=== PATIENT | male | born 1960 | race Caucasian/White ===

== ENCOUNTER → 2017-05-05 | Outpatient (CLI) | payer MEDICARE, OTHER ==
--- NOTE | 2017-05-05 19:10 | EKG REPORT ---
SEVERITY:- ABNORMAL ECG - SINUS OR ECTOPIC ATRIAL RHYTHM PROBABLE LEFT ATRIAL ABNORMALITY ABNRM R PROG, CONSIDER ASMI OR LEAD PLACEMENT : Confirmed by: Willard Guy MD 05-May-2017 19:09:38
== END ==
LOC: OD 11:40
PROVIDERS: ATTEND Physician Assistant
DX: Z79.899 Other long term (current) drug therapy (principal); Z79.891 Long term (current) use of opiate analgesic
CPT/HCPCS: 93005; 36415; 93010; G0480; 80358

== ENCOUNTER → 2018-08-18 | Outpatient (CLI) | payer MEDICARE, MEDICAID ==
--- NOTE | 2018-08-18 22:39 | EKG REPORT ---
SEVERITY:- ABNORMAL ECG - SINUS RHYTHM PROBABLE ANTEROSEPTAL INFARCT, OLD : Confirmed by: Julisa Sinha 18-Aug-2018 22:38:53
== END ==
LOC: OD 12:17
PROVIDERS: ATTEND Physician Assistant Medical
DX: Z79.891 Long term (current) use of opiate analgesic (principal)
CPT/HCPCS: 93005; 36415; 93010; G0480; 80358

== ENCOUNTER 2018-11-24 14:33 | Emergency (ER) | payer MEDICARE, MEDICAID ==
--- NOTE | 2018-11-24 15:14 | ER Document Report ---
ED Medical Screen (RME) - General Chief Complaint: Abnormal Lab Results Stated Complaint: ABNORMAL LABS Time Seen by Provider: 11/24/18 15:04 Primary Care Provider: FESTUS COLLINS PA-C [Primary Care Provider] - Follow up as needed Information source: Patient Notes: Patient sent to the ED by PCP, Dr. Shay, for hemoglobin of 6. Patient went to his primary care physician yesterday for lower extremity swelling and had routine blood work done. He was contacted today and told to go to the emergency department for an evaluation because his hemoglobin was 6. Patient states that he did have a hernia repair surgery done at the beginning of October in [place] by Dr. Irwin. Patient states that his incision is healing well. Patient does have a colostomy bag in place. He denies seeing any blood in the bag. Patient denies any chest pain, shortness of breath, abdominal pain, nausea, vomiting. I have greeted and performed a rapid initial assessment of this patient. A comprehensive ED assessment and evaluation of the patient, analysis of test results and completion of the medical decision making process will be conducted by additional ED providers. PHYSICAL EXAMINATION: GENERAL: Ill appearing. HEAD: Atraumatic, normocephalic. EYES: Pupils equal round extraocular movements intact, conjunctiva are normal. ENT: Nares patent NECK: Normal range of motion LUNGS: No respiratory distress Musculoskeletal: Normal range of motion NEUROLOGICAL: Normal speech, normal gait. PSYCH: Normal mood, normal affect. TRAVEL OUTSIDE OF THE [place] IN LAST 30 DAYS: No - Related Data Allergies/Adverse Reactions: No Known Allergies Allergy (Unverified 03/19/16 15:11) Past Medical History Renal/ Medical History: Denies: Hx Peritoneal Dialysis GI Medical History: Reports: Hx Gastroesophageal Reflux Disease Musculoskeltal Medical History: Reports Hx Arthritis Psychiatric Medical History: Reports: Hx Depression Past Surgical History: Reports: Hx Abdominal Surgery Physical Exam - Vital signs Vitals: Temp Pulse Resp BP Pulse Ox 98.1 F 100 20 111/58 L 98 11/24/18 14:42 11/24/18 14:42 11/24/18 14:42 11/24/18 14:42 11/24/18 14:42 Course - Vital Signs Vital signs: Temp Pulse Resp BP Pulse Ox 98.1 F 100 20 111/58 L 98 11/24/18 14:42 11/24/18 14:42 11/24/18 14:42 11/24/18 14:42 11/24/18 14:42 Doctor's Discharge - Discharge Referrals: FESUTS COLLINS PA-C [Primary Care Provider] - Follow up as needed
[2018-11-24 15:53] LABS: ALANINE AMINOTRANSFERASE 14 U/L (21-72); ALBUMIN 3.8 g/dL (3.5-5.0); ALKALINE PHOSPHATASE 81 U/L (38-126); ANION GAP 11 (5-19); ASPARTATE AMINO TRANSFERASE 8 U/L (17-59); BILIRUBIN,DIRECT 0.2 mg/dL (0.0-0.4); BILIRUBIN,TOTAL 0.9 mg/dL (0.2-1.3); BLOOD UREA NITROGEN 14 mg/dL (7-20); CALCIUM 8.4 mg/dL (8.4-10.2); CARBON DIOXIDE 24 mmol/L (22-30); CHLORIDE 99 mmol/L (98-107); GLUCOSE 101 mg/dL (75-110); POTASSIUM 4.9 mmol/L (3.6-5.0); SODIUM 134.3 mmol/L (137-145); TOTAL PROTEIN 5.8 g/dL (6.3-8.2)
[2018-11-24 16:00] LABS: HEMATOCRIT 19.5 % (37.9-51.0); MEAN CORPUSCULAR HEMOGLOBIN 23.8 pg (27.0-33.4); MEAN CORPUSCULAR HGB CONC 31.6 g/dL (32.0-36.0); MEAN CORPUSCULAR VOLUME 75 fl (80-97); PLATELET COUNT 141 10^3/uL (150-450); RED BLOOD COUNT 2.59 10^6/uL (4.35-5.55); RED CELL DISTRIBUTION WIDTH 22.8 % (11.5-14.0); WHITE BLOOD COUNT 9.5 10^3/uL (4.0-10.5)
[2018-11-24 16:16] LABS: HEMOGLOBIN 6.2 g/dL (13.5-17.0)
[2018-11-24 16:20] LABS: ABSOLUTE LYMPHOCYTES# (MANUAL) 1.3 10^3/uL (0.5-4.7); ABSOLUTE MONOCYTES # (MANUAL) 0.7 10^3/uL (0.1-1.4); ABSOLUTE NEUTROPHILS# (MANUAL) 7.3 10^3/uL (1.7-8.2); BAND NEUTROPHILS % (MANUAL) 1 % (3-5); BASOPHILS % (MANUAL) 0 % (0-2); EOSINOPHILS % (MANUAL) 2 % (0-6); LYMPHOCYTES % (MANUAL) 14 % (13-45); MONOCYTES % (MANUAL) 7 % (3-13); NUCLEATED RED BLOOD CELLS 4 /100 WBC (0); SEGMENTED NEUTROPHILS % (MAN) 76 % (42-78); TOTAL CELLS COUNTED 100
[2018-11-24 16:21] LABS: ANISOCYTOSIS 3+; OVALOCYTES 2+; PLATELET COMMENT DECREASED; POIKILOCYTOSIS 2+
[2018-11-24] MEDS ORDERED: NORMAL SALINE 250 ML IV PRN (16:48)
--- NOTE | 2018-11-24 16:56 | ER Document Report ---
ED General - General Chief Complaint: Abnormal Lab Results Stated Complaint: ABNORMAL LABS Time Seen by Provider: 11/24/18 15:04 Primary Care Provider: FESTUS COLLINS PA-C [Primary Care Provider] - Follow up as needed Notes: Patient is a 58-year-old male who presents to the emergency department after having his blood drawn at his doctor's office. He states he was having the blood drawn to evaluate for his lower extremity edema. His doctor's office called him and told him to come in and stated that his hemoglobin was 6.0. The patient reports that he had a hernia repair done approximately [address] Irwin at [facility]. He states that at that time he stayed in the hospital for approximately 7 days and had to have blood transfusions due to low hemoglobin. Currently he reports that he has been feeling increased dizziness lately and has had persistent nausea without v omiting. He does have some abdominal pain but states that this is the same pain around his surgical sites that is been present since the time of the surgery. He denies having any known bleeding. He has a colostomy bag which does not have any evident blood in it. Patient reports his only past medical history is chronic low back pain. TRAVEL OUTSIDE OF THE [place] IN LAST 30 DAYS: No - Related Data Allergies/Adverse Reactions: No Known Allergies Allergy (Unverified 03/19/16 15:11) Past Medical History - General Information source: Patient - Social History Smoking Status: Former Smoker Family History: Reviewed & Not Pertinent Patient has suicidal ideation: No Patient has homicidal ideation: No Renal/ Medical History: Denies: Hx Peritoneal Dialysis GI Medical History: Reports: Hx Gastroesophageal Reflux Disease Musculoskeletal Medical History: Reports Hx Arthritis Psychiatric Medical History: Reports: Hx Depression Past Surgical History: Reports: Hx Abdominal Surgery Physical Exam - Vital signs Vitals: Temp Pulse Resp BP Pulse Ox 98.1 F 100 20 111/58 L 98 11/24/18 14:42 11/24/18 14:42 11/24/18 14:42 11/24/18 14:42 11/24/18 14:42 - Notes Notes: PHYSICAL EXAMINATION: GENERAL: Pale. HEAD: Atraumatic, normocephalic. EYES: Pupils equal round and reactive to light, extraocular movements intact, sclera anicteric, conjunctiva are normal. ENT: Nares patent, oropharynx clear without exudates. Moist mucous membranes. NECK: Normal range of motion, supple without lymphadenopathy LUNGS: Breath sounds clear to auscultation bilaterally and equal. No wheezes rales or rhonchi. HEART: Regular rate and rhythm without murmurs ABDOMEN: Colostomy bag noted to right lower quadrant, surgical sites noted to periumbilical area with dressings in place. Greenish yellow purulent drainage noted on the bandages. Musculoskeletal: Normal range of motion, 3+ pitting edema to bilateral lower extremities near the ankles. NEUROLOGICAL: Cranial nerves grossly intact. Normal speech, normal gait. Normal sensory, motor exams PSYCH: Normal mood, normal affect. SKIN: Warm, Dry, normal turgor, no rashes or lesions noted. Course - Re-evaluation Re-evalutation: Hemoglobin 6.2, hematocrit 19.5. Comprehensive metabolic panel with a sodium of 134.3, otherwise unremarkable. We will start normal saline infusion at 150 mL's per hour while patient is here in the emergency department. Patient is alert and denies any complaints other than some dizziness over the last several days. Reports generalized abdominal pain but states this has been present since the day of surgery. Denies any episodes of syncope. Denies any known GI bleeding. Denies ever having had a colonoscopy or endoscopy. 11/24/18 16:54 Call placed to [facility] to speak with on-call surgeon for Dr. Irwin's surgical group. 11/24/18 17:[address] Kiley Camarena, on-call surgeon from [facility] she recommends obtaining an IV contrasted CT of the abdomen and pelvis to look for any acute bleed or hematoma. She agrees with plan to transfuse patient with 2 units of packed red cells. If patient asymptomatic after blood transfusion may discharge home with plans to follow-up with surgery outpatient. 11/24/18 18:01 Patient medicated for nausea after receiving the IV contrast. Patient updated on plan of care. Patient has been asking for something to drink, he will be allowed to have something to drink if the scan is negative. Patient verbalizes understanding of same. Patient continues to deny any pain. 11/24/18 18:46 Call placed to [facility] to go over results of mer caro's CAT scan as patient has new hepatosplenomegaly in comparison with the most previous scan on our system of 10/06/16. Awaiting callback. Patient currently resting without any discomfort. First unit of packed red blood cells are infusing. 11/24/18 19:01 Spoke with on-call surgeon Dr. Gifford and discussed CT results. He recommends continuing to transfuse the 2 units of packed red cells. Then he recommends as long as patient is asymptomatic discharging patient on iron supplementation and instructing patient on increasing his nutritional intake. Follow-up in 1 week with their group for a hemoglobin recheck as well as follow-up. - Vital Signs Vital signs: Temp Pulse Resp BP Pulse Ox 98.3 F 103 H 17 115/65 100 11/24/18 18:20 11/24/18 18:20 11/24/18 18:20 11/24/18 18:20 11/24/18 18:20 - Laboratory Result Diagrams: 11/24/18 15:30 11/24/18 15:30 Laboratory results interpreted by me: 11/24/18 11/24/18 11/24/18 15:30 15:30 15:30 RBC 2.59 L Hgb 6.2 L Hct 19.5 L MCV 75 L MCH 23.8 L MCHC 31.6 L RDW 22.8 H Plt Count 141 L Band Neutrophils % 1 L Sodium 134.3 L AST 8 L ALT 14 L Total Protein 5.8 L Crossmatch See Detail Discharge - Discharge Clinical Impression: Postoperative anemia Condition: Stable Disposition: HOME, SELF-CARE Additional Instructions: He received a blood transfusion of 2 units today in the emergency department. I called and spoke with the on-call surgeon for Dr. Irwin's group at [facility]. They would like you to start taking an iron supplement which I have prescribed. It is also important to increase your nutritional intake by eating healthy proteins as well as vegetables. They would like to see you next week for a follow-up and also to have your hemoglobin redrawn. As we discussed please return to the emergency department if you develop any new or worrisome symptoms such as dizziness, feeling faint, rapid heartbeat or any other symptom that is concerning to you. We will be happy to reevaluate you at any time here in the emergency department. Prescriptions: Ferrous Sulfate [Feosol] 325 mg PO BID #60 tablet Referrals: COLLINS,FESTUS E, PA-C [Primary Care Provider] - Follow up as needed
--- NOTE | 2018-11-24 17:17 | RADIOLOGY REPORT (SQ) ---
EXAM DESCRIPTION: CHEST SINGLE VIEW COMPLETED DATE/TIME: 11/24/2018 5:09 pm REASON FOR STUDY: eval for CHF, bilateral LE edema COMPARISON: 03/19/2016 EXAM PARAMETERS: NUMBER OF VIEWS: One view. TECHNIQUE: Single frontal radiographic view of the chest acquired. RADIATION DOSE: NA LIMITATIONS: None. FINDINGS: LUNGS AND PLEURA: No opacities, masses or pneumothorax. No pleural effusion. MEDIASTINUM AND HILAR STRUCTURES: No masses. Contour normal. HEART AND VASCULAR STRUCTURES: Heart normal in size. Normal vasculature. BONES: No acute findings. HARDWARE: None in the chest. OTHER: No other significant finding. IMPRESSION: NO ACUTE RADIOGRAPHIC FINDING IN THE CHEST. TECHNICAL DOCUMENTATION: JOB ID: [id number]- All Rights Reserved Reading location - IP/workstation name: [email or web address]
[2018-11-24] MEDS ORDERED: ONDANSETRON HCL INJ/PF 4 MG/2 ML SDV IV ONE (18:01)
[2018-11-24] MEDS ORDERED: NORMAL SALINE 1000 ML 1,000 ML IV ONE (18:04)
--- NOTE | 2018-11-24 18:24 | RADIOLOGY REPORT (SQ) ---
EXAM DESCRIPTION: CT ABD/PELVIS WITH IV ONLY COMPLETED DATE/TIME: 11/24/2018 5:59 pm REASON FOR STUDY: eval for post-op bleeding or hematoma COMPARISON: 10/06/2018 TECHNIQUE: CT scan of the abdomen and pelvis performed using helical scanning technique with dynamic intravenous contrast injection. No oral contrast. Images reviewed with lung, soft tissue, and bone windows. Reconstructed coronal and sagittal MPR images reviewed. Delayed images for evaluation of the urinary system also acquired. All images stored on PACS. All CT scanners at this facility use dose modulation, iterative reconstruction, and/or weight based d osing when appropriate to reduce radiation dose to as low as reasonably achievable (ALARA). [facility]: Dose Right [facility]: CareDose [facility]: Dose Right [facility]: Teradose 4D [facility]: [employer] CONTRAST TYPE AND DOSE: contrast/concentration: Isovue 350.00 mg/ml; Total Contrast Delivered: 93.0 ml; Total Saline Delivered: 56.0 ml RENAL FUNCTION: BUN 14 creatinine 1.1 RADIATION DOSE: CT Rad equipment meets quality standard of care and radiation dose reduction techniq ues were employed. CTDIvol: NaN - NaN mGy. DLP: 0 mGy-cm.. LIMITATIONS: None. FINDINGS: LOWER CHEST: No significant findings. No nodules or infiltrates. LIVER: Hepatomegaly. SPLEEN: Splenomegaly. The spleen measures 21 cm in cephalocaudal dimension. PANCREAS: No masses. No significant calcifications. No adjacent inflammation or peripancreatic fluid collections. Pancreatic duct not dilated. GALLBLADDER: No identified stones by CT criteria. No inflammatory changes to suggest cholecystitis. ADRENAL GLANDS: No significant masses or asymmetry. RIGHT KIDNEY AND URETER: No solid masses. No significant calcifications. No hydronephrosis or hyd roureter. LEFT KIDNEY AND URETER: No solid masses. No significant calcifications. No hydronephrosis or hydr oureter. AORTA AND VESSELS: No aneurysm. No dissection. Renal arteries, SMA, celiac without stenosis. RETROPERITONEUM: No retroperitoneal adenopathy, hemorrhage or masses. BOWEL AND PERITONEAL CAVITY: There is an ostomy in the right lower quadrant. There are inflammatory changes in the subcutaneous fat around the ostomy. No fluid collection is seen to suggest an abscess . No obvious bowel mass. There is no free fluid in the abdomen. APPENDIX: Not identified PELVIS: No mass. No free fluid. Normal bladder. ABDOMINAL WALL: No masses. No hernias. BONES: Scoliosis. Anterolisthesis of L5 on S1. Bilateral pars defects are suggested at L5. OTHER: No other significant finding. IMPRESSION: 1. Hepatosplenomegaly. The splenic enlargement is a new finding. 2. There is now an ostomy in the right lower quadrant. There are inflammatory changes in subcutaneo us fat in this area. No fluid collection is seen. 3. Osseous findings as described. TECHNICAL DOCUMENTATION: JOB ID: [id number] Quality ID # [id number]: Final reports with documentation of one or more dose reduction techniques (e.g., Au tomated exposure control, adjustment of the mA and/or kV according to patient size, use of iterative reconstruction technique) 2010 [employer]- All Rights Reserved Reading location - IP/workstation name: [email or web address]
[2018-11-24] MEDS ORDERED: MORPHINE SULFATE 10 MG/ML INJ IV ONE (22:15)
[2018-11-24 23:54] VITALS: BP 100/69
== END 2018-11-25 00:15 | disposition home or self-care (01) ==
LOC: ER 14:33
DX: D64.9 Anemia, unspecified (principal); Z98.890 Other specified postprocedural states; R10.33 Periumbilical pain; R60.0 Localized edema; R42 Dizziness and giddiness; R11.0 Nausea; Z87.891 Personal history of nicotine dependence; Z93.3 Colostomy status
CPT/HCPCS: 99284; 96374; 86900; 86901; 36415; 36430; 86850; 85025; 80053; 86920; 83880; 71045; 74177; P9016; J2270

== ENCOUNTER 2018-12-02 04:23 | Emergency (ER) | payer MEDICARE, MEDICAID ==
[2018-12-02 06:05] LABS: HEMATOCRIT 21.9 % (37.9-51.0); MEAN CORPUSCULAR HEMOGLOBIN 25.2 pg (27.0-33.4); MEAN CORPUSCULAR HGB CONC 32.4 g/dL (32.0-36.0); MEAN CORPUSCULAR VOLUME 78 fl (80-97); PLATELET COUNT 120 10^3/uL (150-450); RED BLOOD COUNT 2.82 10^6/uL (4.35-5.55); RED CELL DISTRIBUTION WIDTH 21.6 % (11.5-14.0); WHITE BLOOD COUNT 8.4 10^3/uL (4.0-10.5)
[2018-12-02 06:22] LABS: ABSOLUTE LYMPHOCYTES# (MANUAL) 1.6 10^3/uL (0.5-4.7); ABSOLUTE MONOCYTES # (MANUAL) 0.2 10^3/uL (0.1-1.4); ABSOLUTE NEUTROPHILS# (MANUAL) 6.2 10^3/uL (1.7-8.2); BAND NEUTROPHILS % (MANUAL) 2 % (3-5); BASOPHILS % (MANUAL) 0 % (0-2); EOSINOPHILS % (MANUAL) 5 % (0-6); LYMPHOCYTES % (MANUAL) 19 % (13-45); MONOCYTES % (MANUAL) 2 % (3-13); NUCLEATED RED BLOOD CELLS 1 /100 WBC (0); SEGMENTED NEUTROPHILS % (MAN) 72 % (42-78); TOTAL CELLS COUNTED 100
[2018-12-02 06:23] LABS: ANISOCYTOSIS 3+; HYPOCHROMASIA SLIGHT; OVALOCYTES 1+; PLATELET COMMENT DECREASED; POIKILOCYTOSIS 1+; POLYCHROMASIA SLIGHT; TEAR DROP CELLS SLIGHT
[2018-12-02 06:24] LABS: HEMOGLOBIN 7.1 g/dL (13.5-17.0)
[2018-12-02 06:24] LABS: APPEARANCE,URINE CLEAR; BILIRUBIN,URINE NEGATIVE (NEGATIVE); COLOR,URINE YELLOW; GLUCOSE, URINE NEGATIVE (NEGATIVE); KETONES,URINE NEGATIVE (NEGATIVE); LEUKOCYTE ESTERASE,URINE NEGATIVE (NEGATIVE); NITRITE,URINE NEGATIVE (NEGATIVE); PROTEIN,URINE NEGATIVE (NEGATIVE); URINE SPECIFIC GRAVITY 1.013; UROBILINOGEN,URINE NEGATIVE mg/dL (<2.0)
[2018-12-02] MEDS ORDERED: NORMAL SALINE 250 ML IV PRN (07:48)
--- NOTE | 2018-12-02 07:49 | ER Document Report ---
ED General - General Chief Complaint: Abnormal Lab Results Stated Complaint: ABNORMAL LABS Time Seen by Provider: 12/02/18 07:20 Mode of Arrival: Ambulatory Information source: Patient Notes: Patient is a 58-year-old male who presents the emergency department requesting blood transfusion. Patient has a recent history of anemia. Patient was seen here approximately 1 week ago and given 2 units of packed red cells. Patient reports he had outpatient labs drawn yesterday at his oncologist office and was found to have a hemoglobin of 7.1. His oncologist directed him to come to the ED to get 2 units of blood. Patient had surgery approximately 5 weeks ago at [facility] for a hernia repair which is what started the cycle of anemia. Patient currently has no complaints. He denies any chest pain, shortness of breath, weakness or dizziness. Patient reports he feels well. TRAVEL OUTSIDE OF THE [place] IN LAST 30 DAYS: No - Related Data Allergies/Adverse Reactions: No Known Allergies Allergy (Verified 12/02/18 04:26) Past Medical History - General Information source: Patient - Social History Smoking Status: Current Some Day Smoker Frequency of alcohol use: None Drug Abuse: None Family History: Reviewed & Not Pertinent Patient has suicidal ideation: No Patient has homicidal ideation: No Renal/ Medical History: Denies: Hx Peritoneal Dialysis GI Medical History: Reports: Hx Gastroesophageal Reflux Disease Musculoskeletal Medical History: Reports Hx Arthritis Psychiatric Medical History: Reports: Hx Depression Past Surgical History: Reports: Hx Abdominal Surgery Review of Systems - Review of Systems Constitutional: No symptoms reported EENT: No symptoms reported Cardiovascular: No symptoms reported Respiratory: No symptoms reported Gastrointestinal: No symptoms reported Genitourinary: No symptoms reported Male Genitourinary: No symptoms reported Musculoskeletal: No symptoms reported Skin: No symptoms reported Hematologic/Lymphatic: No symptoms reported Neurological/Psychological: No symptoms reported Physical Exam - Vital signs Vitals: Temp Pulse Resp BP Pulse Ox 98.7 F 109 H 16 129/70 H 100 12/02/18 04:28 12/02/18 04:28 12/02/18 04:28 12/02/18 04:28 12/02/18 04:28 - Notes Notes: PHYSICAL EXAMINATION: GENERAL: Well-appearing, well-nourished and in no acute distress. HEAD: Atraumatic, normocephalic. EYES: Pupils equal round and reactive to light, extraocular movements intact, sclera anicteric, conjunctiva are normal. ENT: Nares patent, oropharynx clear without exudates. Moist mucous membranes. NECK: Normal range of motion, supple without lymphadenopathy LUNGS: Breath sounds clear to auscultation bilaterally and equal. No wheezes rales or rhonchi. HEART: Regular rate and rhythm without murmurs ABDOMEN: Soft, nontender, nondistended abdomen. No guarding, no rebound. No masses appreciated. Musculoskeletal: Normal range of motion, no pitting or edema. No cyanosis. NEUROLOGICAL: Cranial nerves grossly intact. Normal speech. Normal sensory, motor exams PSYCH: Normal mood, normal affect. SKIN: Warm, Dry, pale, normal turgor, no rashes or lesions noted. Course - Re-evaluation Re-evalutation: 12/02/18 08:05 Hemoglobin is 7.1, hematocrit 21.9. Patient will be transfused 2 units of blood. Patient understands the risks and benefits, patient did have a blood transfusion of 2 units done here in this facility 2 weeks ago. Patient currently denies any physical complaints. His physical examination is unremarkable other than being pale. He is currently being seen by [facility], Dr. Jones for his recurrent anemia. He states he has an appointment with him on Thursday. Patient also has an appointment scheduled with a nylon machine operator for 12/09/18 for a consultation for endoscopy and colonoscopy. Patient has had an uneventful ED stay. He received 2 units of packed red blood cells. His vital signs remained stable throughout the transfusions. He reports he feels well and is ready to go home. He already has follow-up scheduled with both his oncologist as well as his nylon machine operator. Patient and verbalized understanding of ED return precautions and are agreeable to same. - Vital Signs Vital signs: Temp Pulse Resp BP Pulse Ox 98 F 89 18 122/76 100 12/02/18 13:00 12/02/18 13:00 12/02/18 13:00 12/02/18 13:12/02/18 13:00 - Laboratory Result Diagrams: 12/02/18 05:51 Laboratory results interpreted by me: 12/02/18 12/02/18 05:51 06:46 RBC 2.82 L Hgb 7.1 L Hct 21.9 L MCV 78 L MCH 25.2 L RDW 21.6 H Plt Count 120 L Band Neutrophils % 2 L Monocytes % (Manual) 2 L Crossmatch See Detail Discharge - Discharge Clinical Impression: Encounter for blood transfusion Anemia Qualifiers: Anemia type: other cause Other causes of anemia: other cause, not classified Qualified Code(s): D64.89 - Other specified anemias Condition: Stable Disposition: HOME, SELF-CARE Additional Instructions: You received a transfusion of packed red blood cells today. Please continue to follow-up with your wool cleaner as discussed. Keep the appointment you have with your nylon machine operator as well for your scope. Please return to the emergency department if you experience any blood in your stool or vomit. Please also return to the emergency department if you experience weakness, you pass out or any other symptom that is concerning to you.
[2018-12-02 13:01] VITALS: BP 122/76
== END 2018-12-02 13:02 | disposition home or self-care (01) ==
LOC: ER 04:23
DX: D64.89 Other specified anemias (principal); F17.200 Nicotine dependence, unspecified, uncomplicated
CPT/HCPCS: 99283; 96360; 96361; 86900; 86901; 36415; 36430; 86850; 85025; 81001; 86920; P9016; J7050

== ENCOUNTER → 2018-12-13 | Outpatient (CLI) | payer MEDICARE, MEDICAID ==
[2018-12-13 10:37] LABS: PHOSPHORUS 4.7 mg/dL (2.5-4.5)
== END ==
LOC: LAB 09:38
PROVIDERS: ATTEND Internal Medicine Gastroenterology
DX: Z79.899 Other long term (current) drug therapy (principal)
CPT/HCPCS: 36415; 82330; 83735; 84100

== ENCOUNTER 2019-02-26 16:15 | Emergency (ER) | payer MEDICARE, MEDICAID ==
[2019-02-26 16:28] VITALS: BP 126/69
[2019-02-26] MEDS ORDERED: DIPH/PERTUSS(ACELL)/TETANUS VAC/PF 0.5 ML SYR (>=10YO) IM ONE (17:54)
[2019-02-26] MEDS ORDERED: LIDOCAINE 1% INJ-PF (10 MG/ML) 30 ML SDV INJ ONE (17:54)
[2019-02-26] MEDS ORDERED: HYDROCODONE/ACETAMINOPHEN 5-325 MG TABLET PO ONE (17:56)
--- NOTE | 2019-02-26 18:05 | ER Document Report ---
ED General - General Chief Complaint: Laceration Stated Complaint: LEG LACERATION Time Seen by Provider: 02/26/19 17:54 Mode of Arrival: Ambulatory Information source: Patient TRAVEL OUTSIDE OF THE [place] IN LAST 30 DAYS: No - HPI Patient complains to provider of: Right ankle laceration Onset: Just prior to arrival Onset/Duration: Sudden Quality of pain: Sharp Severity: Moderate Pain Level: 3 Associated symptoms: None Exacerbated by: Denies Relieved by: Denies Similar symptoms previously: No Recently seen / treated by doctor: No Notes: 58-year-old male coming in today with right ankle laceration. Rodolfo stand from a recreational struck him in the ankle. No chance of foreign body. No chance of bony injury. Last tetanus unknown - Related Data Allergies/Adverse Reactions: No Known Allergies Allergy (Verified 02/26/19 16:16) Past Medical History - Social History Smoking Status: Smoker,Current Status Unk Family History: Reviewed & Not Pertinent Renal/ Medical History: Denies: Hx Peritoneal Dialysis GI Medical History: Reports: Hx Gastroesophageal Reflux Disease Musculoskeletal Medical History: Reports Hx Arthritis Psychiatric Medical History: Reports: Hx Depression Past Surgical History: Reports: Hx Abdominal Surgery Physical Exam - Vital signs Vitals: Temp Pulse Resp BP Pulse Ox 98.2 F 90 18 126/69 H 95 02/26/19 16:26 02/26/19 16:26 02/26/19 16:26 02/26/19 16:26 02/26/19 16:26 Course - Vital Signs Vital signs: Temp Pulse Resp BP Pulse Ox 98.2 F 90 18 126/69 H 95 02/26/19 16:26 02/26/19 16:26 02/26/19 16:26 02/26/19 16:26 02/26/19 16:26 Procedures - Laceration/Wound Repair LEFT ANKLE Time completed: 18:50 Wound length (cm): 4 Wound's Depth, Shape: Linear, Flap Laceration pre-procedure: Sterile PPE donned, Sterile drapes applied, Shur-Clens applied Anesthetic type: 1% Lidocaine Volume Anesthetic (mLs): 14 Wound explored: Clean, No foreign body removed - NO FB SEEN Wound Repaired With: Sutures Suture Size/Type: 3:0, Prolene Number of Sutures: 7 Layer Closure?: No Post-procedure wound care: Sterile dressing applied Post-procedure NV exam normal: Yes Complications: No Discharge - Discharge Clinical Impression: Laceration of left ankle Qualifiers: Encounter type: initial encounter Qualified Code(s): S91.012A - Laceration without foreign body, left ankle, initial encounter Condition: Good Disposition: HOME, SELF-CARE Instructions: Antibiotic Ointment Protection ([facility]), Laceration Care ([facility]), Soap Cleansing ([facility]), Tetanus Immunization Given ([facility]) Additional Instructions: Sutures can come out as early as 10 days but may stay in his late is 14 days. Return to ED if signs of infection.
== END 2019-02-26 19:16 | disposition home or self-care (01) ==
LOC: ER 16:15
DX: S91.012A Laceration without foreign body, left ankle, initial encounter (principal); W22.8XXA Striking against or struck by other objects, initial encounter
CPT/HCPCS: 99282; 90471; 90715; 12002; J3490; A9270

== ENCOUNTER → 2019-10-07 | Outpatient (CLI) | payer MEDICARE, MEDICAID ==
--- NOTE | 2019-10-07 21:40 | EKG REPORT ---
SEVERITY:- NORMAL ECG - SINUS RHYTHM : Confirmed by: Willard Guy MD 07-Oct-2019 21:40:04
== END ==
LOC: OD 11:17
PROVIDERS: ATTEND Physician Assistant
DX: Z51.81 Encounter for therapeutic drug level monitoring (principal); Z79.891 Long term (current) use of opiate analgesic; Z79.899 Other long term (current) drug therapy
CPT/HCPCS: 93005; 93010

== ENCOUNTER → 2019-10-11 | Outpatient (CLI) | payer MEDICARE, MEDICAID | LOC: OD 11:03 | PROVIDERS: ATTEND Physician Assistant | DX: Z51.81 Encounter for therapeutic drug level monitoring (principal); Z79.891 Long term (current) use of opiate analgesic; Z79.899 Other long term (current) drug therapy | CPT/HCPCS: 36415; G0480; 80358 ==

== ENCOUNTER → 2019-11-23 | Outpatient (CLI) | payer MEDICARE, MEDICAID | LOC: OD 11:06 | PROVIDERS: ATTEND Pain Medicine Interventional Pain Medicine | DX: Z51.81 Encounter for therapeutic drug level monitoring (principal); Z79.891 Long term (current) use of opiate analgesic | CPT/HCPCS: 36415; G0480; 80358 ==

== ENCOUNTER → 2020-05-22 | Outpatient (CLI) | payer MEDICAID, MEDICARE ==
--- NOTE | 2020-05-22 14:57 | RADIOLOGY REPORT (SQ) ---
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 TECHNIQUE: Dynamic and static rust scale and color images acquired of the lower extremity arteries. Additional selected spectral images recorded. LIMITATIONS: None. FINDINGS: RIGHT LEG: INFLOW ARTERIES: Not imaged. FEMORAL ARTERIES:Multiphasic waveforms. Normal, no velocity elevation to suggest focal stenosis. Norm al color Doppler evaluation. No aneurysm. POPLITEAL ARTERY:Multiphasic waveforms. Normal, no velocity elevation to suggest focal stenosis. Norm al color Doppler evaluation. No aneurysm. PATENT TIBIOPERONEAL TRUNK AND 3 VESSEL RUNOFF: Yes, normal vessels. OTHER: No other significant finding. LEFT LEG: INFLOW ARTERIES: Not imaged. FEMORAL ARTERIES:Multiphasic waveforms. Normal, no velocity elevation to suggest focal stenosis. Norm al color Doppler evaluation. No aneurysm. POPLITEAL ARTERY:Multiphasic waveforms. Normal, no velocity elevation to suggest focal stenosis. Norm al color Doppler evaluation. No aneurysm. PATENT TIBIOPERONEAL TRUNK AND 3 VESSEL RUNOFF: Yes, normal vessels. OTHER: No other significant finding. IMPRESSION: NORMAL BILATERAL LOWER EXTREMITY ARTERIAL DOPPLER. TECHNICAL DOCUMENTATION: JOB ID: [id number] 2010 [employer] All Rights Reserved Reading location - IP/workstation name: [email or web address]
== END ==
LOC: SP 10:23
PROVIDERS: ATTEND Nurse Practitioner Family
DX: L97.212 Non-pressure chronic ulcer of right calf with fat layer exposed (principal)
CPT/HCPCS: 93925

== ENCOUNTER → 2020-10-10 | Outpatient (CLI) | payer MEDICARE ==
--- NOTE | 2020-10-10 21:55 | EKG REPORT ---
SEVERITY:- DEFECTIVE ECG - SINUS RHYTHM BASELINE ARTIFACTS.DEFECTIVE BUT NORMAL EKG : Confirmed by: Arabella Beth MD 10-Oct-2020 21:55:04
== END ==
LOC: OD 13:47
PROVIDERS: ATTEND Physician Assistant
DX: Z51.81 Encounter for therapeutic drug level monitoring (principal); Z79.891 Long term (current) use of opiate analgesic
CPT/HCPCS: 36415; 84600; 93005; 93010

== ENCOUNTER → 2020-10-31 | Outpatient (CLI) | payer MEDICARE | LOC: OD 13:30 | PROVIDERS: ATTEND Physician Assistant | DX: Z51.81 Encounter for therapeutic drug level monitoring (principal); Z79.899 Other long term (current) drug therapy | CPT/HCPCS: 36415; G0480; 80358 ==